=== PATIENT | female | born 1995 | race Caucasian/White ===

== ENCOUNTER 2018-02-27 19:58 | Emergency (ER) | payer OTHER ==
[~2018-02-27] VITALS: Ht 160 cm; Wt 77.1 kg
[2018-02-27] MEDS ORDERED: LEVO-T25 MCG PO (20:45)
[2018-02-28] MEDS ORDERED: ULTRACET PO (04:10)
== END 2018-02-28 04:42 | disposition home or self-care (01) ==
LOC: ER 19:58
DX: O20.0 Threatened abortion (principal); Z34.01 Encounter for supervision of normal first pregnancy, first trimester